=== PATIENT | female | born 1935 | race Caucasian/White ===

== ENCOUNTER 2018-05-24 18:39 | Emergency (ER) | payer MEDICARE, OTHER ==
[~2018-05-24] VITALS: Ht 147.3 cm; Wt 54.4 kg
[~2018-05-24 18:39] MED LIST: ACET500T33 PO; ALEN70TA3 PO; ASPI-482 PO; ATEN50TA PO; AZEL137S5 NS; CALC500T13 PO; CALC625T20 PO; DEXT118L3 PO; FURO-68 PO; HYDROCORTISONE28 G1 TP; ISOS60TA PO; LOPE1LIQ7 PO; LORA10TA68 PO; OMEG1CAP2 PO; OMEP20TA8 PO; POTA10TA31 PO; SIME125T17 PO; SIMV20TA3 PO
[2018-05-24 19:13] VITALS: BP 185/92
--- NOTE | 2018-05-24 19:35 | PHYS DOC ---
Past Medical History Past Medical History: Cancer, Hypertension, Other Additional Past Medical Histor: MR Past Surgical History: Cancer Surgery, Other Additional Past Surgical Histo: BILATERAL MASTECTOMY Alcohol Use: None Drug Use: None Adult General Chief Complaint Chief Complaint: MECHANICAL FALL HPI HPI Patient is a 82 year old female with a history of chronic lower leg swelling presents to the ED complaining of fall times one hour ago. Patient lives in assisted living and they went bowling and when she went to throw the ball she fell backwards. States she landed on her lower back. Complains of pain to right side of neck and left ankle. Discussed pain as sharp. Rates the pain as 5 out of 10. Patient able to ambulate after the injury. Denies symptoms prior to fall , nausea/vomiting, chest pain, shortness of breath, weakness, dizziness, fever, syncope, or use of blood thinners. Review of Systems Review of Systems Constitutional: Denies fever or chills [] Eyes: Denies change in visual acuity, redness, or eye pain [] HENT: Denies nasal congestion or sore throat [] Respiratory: Denies cough or shortness of breath [] Cardiovascular: No additional information not addressed in HPI [] GI: Denies abdominal pain, nausea, vomiting, bloody stools or diarrhea [] : Denies dysuria or hematuria [] Musculoskeletal: Complains of back, neck and left ankle pain. Integument: Denies rash or skin lesions [] Neurologic: Denies headache, focal weakness or sensory changes [] All other systems were reviewed and found to be within normal limits, except as documented in this note. Allergies Allergies Allergies Coded Allergies Type Severity Reaction Last Updated Verified No Known Drug Allergies 01/29/14 No Physical Exam Physical Exam Constitutional: Well developed, well nourished, no acute distress, non-toxic appearance. [] HENT: Normocephalic, atraumatic, bilateral external ears normal, oropharynx moist, no oral exudates, nose normal. [] Eyes: PERRLA, EOMI, conjunctiva normal, no discharge. [] Neck: Normal range of motion, mild right paraspinal cervical tenderness, supple , no stridor. [] Cardiovascular:Heart rate regular rhythm, no murmur [] Lungs & Thorax: Bilateral breath sounds clear to auscultation [] Abdomen: Bowel sounds normal, soft, no tenderness, no masses, no pulsatile masses. [] Skin: Warm, dry, no erythema, no rash. [] Back: mild left lumbar paraspinal tenderness, NV intact. no CVA tenderness. [] Extremities: mild left lateral ankle tenderness, no cyanosis, no clubbing, ROM intact, no edema. [] Neurologic: Alert and oriented X 3, normal motor function, normal sensory function, no focal deficits noted. [] Psychologic: Affect normal, judgement normal, mood normal. [] Current Patient Data Vital Signs Vital Signs Date Time Temp Pulse Resp B/P (MAP) Pulse Ox O2 Delivery O2 Flow Rate FiO2 05/24/18 19:13 98.0 98 20 185/92 (123) 100 Room Air 98.0 EKG EKG [] Radiology/Procedures Radiology/Procedures CT scan of the lumbar spine without contrast 05/24/2018 CLINICAL HISTORY: Low back pain post fall. TECHNIQUE: Unenhanced, contiguous, 0.625 mm axial sections were obtained through the lumbar spine. 3 mm reconstructed sagittal, axial and coronal images were obtained. One or more of the following individualized dose reduction techniques were utilized for this study: 1. Automated exposure control. 2. Adjustment of the mA and/or kV according to patient size. 3. Use of iterative reconstruction technique. FINDINGS: Comparison is made to a CT scan of the abdomen and pelvis dated 02/25/2015. Sagittal and coronal reconstructed images demonstrate very mild S-shaped curvature of the thoracolumbar spine. Degenerative changes are seen throughout the lumbar disc spaces consisting of vertebral endplate sclerosis and minimal to mild anterior and posterior vertebral body osteophyte formation. Mild anterolisthesis of L4 in relation to L5 is noted. Atherosclerotic calcification of the abdominal aorta and its branches is seen. A 5 cm partially calcified mass is seen within the pelvis, unchanged. This likely represents a uterine fibroid. An old appearing healed fracture of the superior/mid sacral body is noted. No fracture or subluxation of the lumbar vertebrae is seen. The changes of degenerative disc disease are seen throughout the lumbar spine. These consist of mild to moderate generalized disc bulges, degenerative changes involving the facet joints and mild to moderate ligamentum flavum hypertrophy. These findings findings result in mild to moderate central spinal canal stenosis at L3-4 and moderate to severe central spinal canal stenosis at L4-5. No neural foraminal stenosis is seen. IMPRESSION: No fracture or subluxation of the lumbar vertebrae is seen.[] CT scan of the head without contrast May 24, 2018 Clinical History: Fall with head and neck pain. Technique: Unenhanced, contiguous, 5 mm axial sections were obtained through the head. One or more of the following individualized dose reduction techniques were utilized for this study: 1. Automated exposure control. 2. Adjustment of the mA and/or kV according to patient size. 3. Use of iterative reconstruction technique. Findings: Comparison study is dated January 24, 2015. There is generalized parenchymal atrophy. Areas of decreased attenuation are seen within the periventricular and subcortical white matter of both cerebral hemispheres consistent with areas of small vessel ischemic disease. No acute parenchymal abnormality is seen. No extra-axial fluid collection is noted. No skull fracture is seen. Impression: No acute intracranial abnormality is seen. CT scan of the cervical spine without contrast May 24, 2018 Clinical history: Fall with neck pain. Technique: Unenhanced, contiguous, 0.625 mm axial sections were obtained through the cervical spine. Axial, coronal and sagittal reconstructed images were obtained. One or more of the following individualized dose reduction techniques were utilized for this study: 1. Automated exposure control. 2. Adjustment of the mA and/or kV according to patient size. 3. Use of iterative reconstruction technique. Findings: Comparison study is dated 01/24/2015. Sagittal and coronal reconstructed images demonstrate slight reversal of the normal cervical lordosis. Degenerative changes consisting of varying degrees of disc space narrowing, vertebral endplate sclerosis and mild to moderate anterior and posterior vertebral body osteophyte formation are seen throughout the cervical disc spaces. No fracture or subluxation of the cervical vertebrae is seen. Degenerative changes are seen involving the uncovertebral and facet joints throughout the cervical disc spaces. Course & Med Decision Making Course & Med Decision Making Pertinent Labs and Imaging studies reviewed. (See chart for details) []Discussed imaging findings with patient and assisted facility employee at bedside. Patient's pain improved. Patient laughing and smiling in exam room. States she is feeling much better. Discussed follow-up and reasons to return to the ED. Both patient and employee understand and agree with plan. Dragon Disclaimer Dragon Disclaimer This electronic medical record was generated, in whole or in part, using a voice recognition dictation system. Departure Departure Impression: Primary Impression: Fall Additional Impressions: Ankle sprain Back pain Disposition: HOME, SELF-CARE Condition: IMPROVED Referrals: FEDERICO HARRIS MD (PCP) Patient Instructions: Ankle Sprain, Back Pain, Adult, Fall Prevention and Home Safety Problem Qualifiers TINO MARTIN May 24, 2018 19:35
--- NOTE | 2018-05-24 20:11 | RAD ---
CT scan of the head without contrast May 24, 2018 Clinical History: Fall with head and neck pain. Technique: Unenhanced, contiguous, 5 mm axial sections were obtained through the head. One or more of the following individualized dose reduction techniques were utilized for this study: 1. Automated exposure control. 2. Adjustment of the mA and/or kV according to patient size. 3. Use of iterative reconstruction technique. Findings: Comparison study is dated January 24, 2015. There is generalized parenchymal atrophy. Areas of decreased attenuation are seen within the periventricular and subcortical white matter of both cerebral hemispheres consistent with areas of small vessel ischemic disease. No acute parenchymal abnormality is seen. No extra-axial fluid collection is noted. No skull fracture is seen. Impression: No acute intracranial abnormality is seen. CT scan of the cervical spine without contrast May 24, 2018 Clinical history: Fall with neck pain. Technique: Unenhanced, contiguous, 0.625 mm axial sections were obtained through the cervical spine. Axial, coronal and sagittal reconstructed images were obtained. One or more of the following individualized dose reduction techniques were utilized for this study: 1. Automated exposure control. 2. Adjustment of the mA and/or kV according to patient size. 3. Use of iterative reconstruction technique. Findings: Comparison study is dated 01/24/2015. Sagittal and coronal reconstructed images demonstrate slight reversal of the normal cervical lordosis. Degenerative changes consisting of varying degrees of disc space narrowing, vertebral endplate sclerosis and mild to moderate anterior and posterior vertebral body osteophyte formation are seen throughout the cervical disc spaces. No fracture or subluxation of the cervical vertebrae is seen. Degenerative changes are seen involving the uncovertebral and facet joints throughout the cervical disc spaces. Impression: No fracture or subluxation of the cervical vertebra is identified. Electronically signed by: Hans Borjas MD (05/24/2018 8:08 PM) [facility]
--- NOTE | 2018-05-24 20:59 | RAD ---
CT scan of the lumbar spine without contrast 05/24/2018 CLINICAL HISTORY: Low back pain post fall. TECHNIQUE: Unenhanced, contiguous, 0.625 mm axial sections were obtained through the lumbar spine. 3 mm reconstructed sagittal, axial and coronal images were obtained. One or more of the following individualized dose reduction techniques were utilized for this study: 1. Automated exposure control. 2. Adjustment of the mA and/or kV according to patient size. 3. Use of iterative reconstruction technique. FINDINGS: Comparison is made to a CT scan of the abdomen and pelvis dated 02/25/2015. Sagittal and coronal reconstructed images demonstrate very mild S-shaped curvature of the thoracolumbar spine. Degenerative changes are seen throughout the lumbar disc spaces consisting of vertebral endplate sclerosis and minimal to mild anterior and posterior vertebral body osteophyte formation. Mild anterolisthesis of L4 in relation to L5 is noted. Atherosclerotic calcification of the abdominal aorta and its branches is seen. A 5 cm partially calcified mass is seen within the pelvis, unchanged. This likely represents a uterine fibroid. An old appearing healed fracture of the superior/mid sacral body is noted. No fracture or subluxation of the lumbar vertebrae is seen. The changes of degenerative disc disease are seen throughout the lumbar spine. These consist of mild to moderate generalized disc bulges, degenerative changes involving the facet joints and mild to moderate ligamentum flavum hypertrophy. These findings findings result in mild to moderate central spinal canal stenosis at L3-4 and moderate to severe central spinal canal stenosis at L4-5. No neural foraminal stenosis is seen. IMPRESSION: No fracture or subluxation of the lumbar vertebrae is seen. Electronically signed by: Hans Borjas MD (05/24/2018 8:55 PM) [facility]
--- NOTE | 2018-05-24 21:11 | RAD ---
Three-view left foot and ankle radiographs 05/24/2018 CLINICAL HISTORY: Left ankle and foot swelling post fall. AP, lateral and oblique digital radiographs of the left ankle and left foot were obtained. There is diffuse osteopenia of the visualized bony structures. Soft tissue swelling surrounds the left ankle. No acute fracture or dislocation of the left ankle is seen. There is a moderate sized left ankle joint effusion. No fracture or dislocation of the left foot is seen. Moderate to severe degenerative changes are seen involving the left ankle joint. Moderate to severe degenerative changes are seen involving the subtalar, talonavicular, calcaneal cuboid and mid tarsal joints. Mild to moderate degenerative changes are seen throughout the interphalangeal, MTP and tarsometatarsal joints of the left foot. IMPRESSION: Degenerative changes are seen involving the left ankle and left foot as outlined above. No acute fracture or dislocation is seen. Electronically signed by: Hans Borjas MD (05/24/2018 9:07 PM) [facility]
== END 2018-05-24 21:48 | disposition home or self-care (01) ==
LOC: ER 18:39
DX: S93.402A Sprain of unspecified ligament of left ankle, initial encounter (principal); M54.5 Low back pain; M54.2 Cervicalgia; I10 Essential (primary) hypertension; W18.39XA Other fall on same level, initial encounter; Y93.54 Activity, bowling; Y99.8 Other external cause status; Y92.89 Other specified places as the place of occurrence of the external cause
CPT/HCPCS: 70450; 72125; 72131; 73610; 73630; 99284-25